=== PATIENT | female | born 1965 | race Caucasian/White ===

== ENCOUNTER → 2023-07-23 07:27 | Outpatient (REF) | payer OTHER, SELFPAY | LOC: RCS 07:27 | PROVIDERS: ATTENDING PHYSICIAN Internal Medicine | DX: I63.9 Cerebral infarction, unspecified (principal) | CPT/HCPCS: 93225; 93226; 93306 ==

== ENCOUNTER → 2023-08-27 07:36 | Outpatient (REF) | payer OTHER, SELFPAY | LOC: RAD 07:36 | PROVIDERS: ATTENDING PHYSICIAN Internal Medicine | DX: I63.9 Cerebral infarction, unspecified (principal) | CPT/HCPCS: 93880 ==